=== PATIENT | female | born 1935 | race Caucasian/White ===

== ENCOUNTER 2016-11-29 11:09 | Outpatient (CLI) | payer MEDICARE, OTHER | END 2016-11-29 20:06 | disposition home or self-care (01) | LOC: SMA 11:09 | PROVIDERS: ATTEND Internal Medicine | DX: Z12.31 Encounter for screening mammogram for malignant neoplasm of breast (principal) | CPT/HCPCS: 77067; G0202 ==

== ENCOUNTER 2017-12-05 10:48 | Outpatient (CLI) | payer OTHER | END 2017-12-05 19:53 | disposition home or self-care (01) | LOC: SMA 10:48 | PROVIDERS: ATTEND Internal Medicine | DX: Z12.31 Encounter for screening mammogram for malignant neoplasm of breast (principal) | CPT/HCPCS: 77067 ==